=== PATIENT | male | born 1940 | race Caucasian/White ===

== ENCOUNTER 2021-02-21 21:31 | Emergency (ER) | payer BC, OTHER ==
[~2021-02-21] VITALS: Ht 182.9 cm; Wt 88.9 kg
[2021-02-22] MEDS ORDERED: TAMS0.4C (00:10)
[2021-02-22] MEDS ORDERED: ALTACE5 MG (00:10)
[2021-02-22] MEDS ORDERED: EZALLOR SPRINKL10 MG (00:11)
[2021-02-22] MEDS ORDERED: DICLOFENAC SODI75 MG PO (01:43)
== END 2021-02-22 02:57 | disposition home or self-care (01) ==
LOC: ER 21:31
DX: S52.592A Other fractures of lower end of left radius, initial encounter for closed fracture (principal); S52.612A Displaced fracture of left ulna styloid process, initial encounter for closed fracture; V93.35XA Fall on board canoe or kayak, initial encounter; Y93.16 Activity, rowing, canoeing, kayaking, rafting and tubing; Y92.838 Other recreation area as the place of occurrence of the external cause; Y99.8 Other external cause status